=== PATIENT | male | born 1940 | race Caucasian/White ===

== ENCOUNTER 2018-08-05 17:13 | Emergency (ER) | payer MEDICARE, OTHER ==
[2018-08-05] MEDS ORDERED: OXYB5TAB86 PO (17:27)
[2018-08-05] MEDS ORDERED: [UNRECOGNIZED DRUG - CODE] MC (17:27)
--- NOTE | 2018-08-05 17:35 | ER Report ---
History and Physical Time Seen By MD: 17:35 Hx. of Stated Complaint: BLOOD IN URINE STARTED THIS MORNING. HAS HAD SIGNIFICANT BURNING WITH URINATION FOR 3 DAYS HPI/ROS CHIEF COMPLAINT: Hematuria, burning with urination, urinary frequency HISTORY OF PRESENT ILLNESS: 78-year-old male patient presents to emergency room with complaint of hematuria, burning with urination and urinary frequency. Patient states that he has had burning with urination for the past 6 months. Seems to get worse over the last couple of days. Says over the last 4 days is also had significant amounts of frequency. He says that he'll often feel he has to go the bathroom really bad and only have a few drips out. Patient states that he noticed the hematuria starting this morning. He denies any fevers, however he did have chills on Tuesday this past week. He denies any nausea, vomiting or diarrhea. Patient states that he has not taken any medication for this. He st ates he's had no appetite for the last few days and has not had much drink. Patient denies having any flank pain. REVIEW OF SYSTEMS: Respiratory: No cough, no dyspnea. Cardiovascular: No chest pain, no palpitations. Gastrointestinal: No vomiting, no abdominal pain. Musculoskeletal: No back pain. Allergies: Coded Allergies: No Known Drug Allergies (Unverified , 08/05/18) Home Meds Active Scripts Sulfamethoxazole/Trimet 800-160 Mg Tab (BACTRIM DS TABLET) 1 Each Tablet, 1 TAB PO Q12H, #14 TAB Prov:TONYA LAINEZ JULISSA 08/05/18 Reported Medications Oxybutynin Chloride (OXYBUTYNIN CHLORIDE) 5 Mg Tablet, 5 MG PO QDAY, TAB 08/05/18 Clobetasol Propionate (CLOBETASOL PROPIONATE) 0.5 Gm Powder, 0.5 GM [facility] 08/05/18 Past Medical/Surgical History Patient has a past medical history of hypertension, hypothyroidism, hematuria. Patient has surgical history of cholecystectomy. Reviewed Nurses Notes: Yes Constitutional Vital Sign - Last 24 Hours 08/05/18 08/05/18 08/05/18 17:18 17:30 18:00 Temp 97.6 Pulse 66 83 81 Resp 20 B/P (MAP) 170/106 151/111 (124) 124/82 (96) Pulse Ox 94 91 92 O2 Delivery Room Air Physical Exam General Appearance: The patient is alert, has no immediate need for airway protection and no current signs of toxicity. Respiratory: Chest is non tender, lungs are clear to auscultation. Cardiac: regular rate and rhythm Gastrointestinal: Abdomen is soft and non tender, no masses, bowel sounds normal. Musculoskeletal: Neck: Neck is supple and non tender. Extremities have full range of motion and are non tender. Skin: No rashes or lesions. DIFFERENTIAL DIAGNOSIS: After history and physical exam differential diagnosis was considered for urinary tract infection, hematuria. Medical Decision Making Data Points Laboratory Hematology Test 08/05/18 17:19 Urine Color Vicky Urine Clarity Cloudy Urine pH 6.0 pH (4.8-9.5) Urine Specific Chase 1.019 Urine Protein 100 mg/dL (NEGATIVE) Urine Glucose (UA) Negative mg/dL (NEGATIVE) Urine Ketones Trace mg/dL (NEGATIVE) Urine Blood Large (NEGATIVE) Urine Nitrite Positive (NEGATIVE) Urine Bilirubin Negative (NEGATIVE) Urine Urobilinogen 4.0 mg/dL (0.2-1.9) Urine Leukocyte Esterase Moderate (NEGATIVE) Urine RBC 2954 /HPF (0-2/HPF) Urine WBC 1057 /HPF (0-5/HPF) Urine WBC Clumps Many /HPF Urine Squamous Epithelial Cells None /LPF (</=FEW) Urine Bacteria Many /HPF (NONE-FEW) Urine Mucus None /HPF (NONE-FEW) Chemistry Test 08/05/18 17:19 Urine Color Vicky Urine Clarity Cloudy Urine pH 6.0 pH (4.8-9.5) Urine Specific Chase 1.019 Urine Protein 100 mg/dL (NEGATIVE) Urine Glucose (UA) Negative mg/dL (NEGATIVE) Urine Ketones Trace mg/dL (NEGATIVE) Urine Blood Large (NEGATIVE) Urine Nitrite Positive (NEGATIVE) Urine Bilirubin Negative (NEGATIVE) Urine Urobilinogen 4.0 mg/dL (0.2-1.9) Urine Leukocyte Esterase Moderate (NEGATIVE) Urine RBC 2954 /HPF (0-2/HPF) Urine WBC 1057 /HPF (0-5/HPF) Urine WBC Clumps Many /HPF Urine Squamous Epithelial Cells None /LPF (</=FEW) Urine Bacteria Many /HPF (NONE-FEW) Urine Mucus None /HPF (NONE-FEW) Urinalysis Test 08/05/18 17:19 Urine Color Vicky Urine Clarity Cloudy Urine pH 6.0 pH (4.8-9.5) Urine Specific Chase 1.019 Urine Protein 100 mg/dL (NEGATIVE) Urine Glucose (UA) Negative mg/dL (NEGATIVE) Urine Ketones Trace mg/dL (NEGATIVE) Urine Blood Large (NEGATIVE) Urine Nitrite Positive (NEGATIVE) Urine Bilirubin Negative (NEGATIVE) Urine Urobilinogen 4.0 mg/dL (0.2-1.9) Urine Leukocyte Esterase Moderate (NEGATIVE) Urine RBC 2954 /HPF (0-2/HPF) Urine WBC 1057 /HPF (0-5/HPF) Urine WBC Clumps Many /HPF Urine Squamous Epithelial Cells None /LPF (</=FEW) Urine Bacteria Many /HPF (NONE-FEW) Urine Mucus None /HPF (NONE-FEW) ED Course/Re-evaluation ED Course Patient was admitted to an exam room, history and physical were obtained. Differential diagnoses were considered. On examination lungs are clear, heart is regular, abdomen soft nontender. A urinalysis was obtained. Patient had large leukocyte esterase, large blood, and positive nitrites. I discussed the findings with the patient and his . His my thought that the blood is likely result of the urinary tract infection. We will go ahead and start him on Bactrim DS one tablet twice a day for the next 7 days. He is follow-up with his primary care provider next week. He states increase his fluid intake, get plenty of rest. They're to emergency room if condition worsens. Patient and verbalized understanding and agreement with plan. Decision to Disposition Date: August 05, 2018 Decision to Disposition Time: 18:11 Depart Departure Latest Vital Signs Vital Signs Date Time Temp Pulse Resp B/P (MAP) Pulse Ox O2 Delivery O2 Flow Rate FiO2 08/05/18 18:00 81 124/82 (96) 92 08/05/18 17:18 97.6 20 Room Air Impression: Primary Impression: Urinary tract infection Condition: Improved Disposition: HOME OR SELF-CARE New Scripts Sulfamethoxazole/Trimet 800-160 Mg Tab (BACTRIM DS TABLET) 1 Each Tablet 1 TAB PO Q12H, #14 TAB Prov: TONYA LAINEZ JULISSA 08/05/18 Patient Instructions: Urinary Tract Infection in Men (ED) Additional Instructions: We are culturing the urine and will call with the results if we need to change the antibiotics. Follow up with your primary care provider in the next week. Return to the ER if condition worsens. Continue with your normal medications. Take Tylenol or Ibuprofen as needed for fevers or pain. Problem Qualifiers Primary Impression: Urinary tract infection Urinary tract infection type: acute cystitis Hematuria presence: with hematuria Qualified Codes: N30.01 - Acute cystitis with hematuria TONYA LAINEZ August 05, 2018 17:35
[2018-08-05 18:00] VITALS: BP 124/82
[2018-08-05] MEDS ORDERED: SULF-198 PO (18:13)
== END 2018-08-05 18:18 | disposition home or self-care (01) ==
LOC: ER 17:16
DX: N30.01 Acute cystitis with hematuria (principal)
CPT/HCPCS: 81001; 87077; 87088; 87186; 99282